=== PATIENT | male | born 1980 | race Caucasian/White ===

== ENCOUNTER 2017-09-08 15:25 | Inpatient (IN) | payer OTHER ==
[2017-09-08] MEDS ORDERED: XYLOCAINE 2% INFILTRATI ONE (21:44)
[2017-09-08] MEDS ORDERED: BACTRIM DS PO ONE (21:51)
[2017-09-08] MEDS ORDERED: PERCOCET 5/325 PO ONE (21:51)
[2017-09-08] MEDS ORDERED: BOOSTRIX IM ONE (21:51)
[2017-09-08] MEDS ORDERED: XYLOCAINE 1%/ EPI 1:100,000 INFILTRATI NR (22:00)
[2017-09-08] MEDS ORDERED: VANCOMYCIN/NS 1 GM/250 ML 1 GM/250 ML BAG IV ONE (22:54)
--- NOTE | 2017-09-08 22:57 | Emergency Department Report ---
- General Chief complaint: Skin/Abscess/Foreign Body Stated complaint: BUTTOCKS ABSCESS Time Seen by Provider: 09/08/17 21:40 Source: patient Mode of arrival: Ambulatory Limitations: No Limitations - History of Present Illness Initial comments: 37 yo male who comes in today due to a perirectal abscess since Friday. He states that he was seen at a clinic and was instructed to come here. He was given an oral medication in addition to a topical medication. He denies any personal medical history, or allergies to medications. He doesn't speak Slovenian. An staff mine warfare officer was used. MD complaint: other (perirectal abscess/cellulitis-right buttock ) Onset/Timin -: days(s) Location: buttocks (right ) Severity: moderate Severity scale (0 -10): 7 Quality: aching, sharp Consistency: constant Improves with: none Worsens with: palpation, movement Associated symptoms: denies other symptoms Treatments Prior to Arrival: other (prescription medication/ointment ) - Related Data Allergies Allergy/AdvReac Type Severity Reaction Status Date / Time No Known Allergies Allergy Unverified 09/08/17 17:26 Abscess Boil [facility] - HPI Chief Complaint: Skin/Abscess/Foreign Body Stated Complaint: BUTTOCKS ABSCESS Time Seen by Provider: 09/08/17 21:40 Duration: 5 Days Location: Perianal Severity: Moderate History: Yes Pain, No Fever, No Purulent Drainage, No Numbness, No Foreign Body , No Previous History, No Insect Bite Allergies/Adverse Reactions: Allergies Allergy/AdvReac Type Severity Reaction Status Date / Time No Known Allergies Allergy Unverified 09/08/17 17:26 ED Review of Systems ROS: Stated complaint: BUTTOCKS ABSCESS Other details as noted in HPI Constitutional: denies: chills, fever Eyes: denies: eye pain, eye discharge, vision change ENT: denies: ear pain, throat pain Respiratory: denies: cough, shortness of breath, wheezing Cardiovascular: denies: chest pain, palpitations Endocrine: no symptoms reported Gastrointestinal: as per HPI Genitourinary: denies: urgency, dysuria Musculoskeletal: denies: back pain, joint swelling, arthralgia Skin: as per HPI Neurological: denies: headache, weakness, paresthesias Psychiatric: denies: anxiety, depression Hematological/Lymphatic: denies: easy bleeding, easy bruising ED Past Medical Hx - Past Medical History Previous Medical History?: No - Surgical History Past Surgical History?: No - Social History Smoking Status: Never Smoker Substance Use Type: None ED Physical Exam - General Limitations: No Limitations General appearance: alert, in no apparent distress - Head Head exam: Present: atraumatic, normocephalic - Eye Eye exam: Present: normal appearance - ENT ENT exam: Present: mucous membranes moist - Respiratory Respiratory exam: Present: normal lung sounds bilaterally. Absent: respiratory distress - Cardiovascular Cardiovascular Exam: Present: regular rate, normal rhythm. Absent: systolic murmur, diastolic murmur, rubs, gallop - Rectal Rectal exam: Present: other (right-perirectal abscess/cellulitis ) - Back Exam Back exam: Present: normal inspection - Neurological Exam Neurological exam: Present: oriented X3 - Psychiatric Psychiatric exam: Present: normal affect, normal mood - Skin Skin exam: Present: warm, dry, intact, normal color. Absent: rash ED Course Vital Signs 09/08/17 09/08/17 17:24 22:13 Temperature 97.1 F L 99.9 F H Pulse Rate 92 H 78 Respiratory 18 14 Rate Blood Pressure 122/66 Blood Pressure 107/60 [Left] O2 Sat by Pulse 100 97 Oximetry - Reevaluation(s) Reevaluation #1: 09/09/17 00:59 CT pelvis revealed a right-sided perianal phlegmon extending along the medial aspect of the right buttock. Hospitalist consulted for admittance. Hospitalist to consult General Surgery on admission. - Consultations Consultation #1: 09/09/17 01:01 Dr. Raines-Hospitalist ED Medical Decision Making - Lab Data Result diagrams: 09/08/17 23:25 09/08/17 23:25 - Radiology Data Perianal abscess/cellulitis Critical care attestation.: If time is entered above; I have spent that time in minutes in the direct care of this critically ill patient, excluding procedure time. ED Disposition Clinical Impression: Perianal abscess, Perianal cellulitis Disposition: OP ADMIT IP TO THIS HOSP Is pt being admited?: Yes Does the pt Need Aspirin: No Condition: Stable Instructions: Cellulitis (ED), Anorectal Abscess and Anal Fistula (ED) Referrals: PRIMARY CARE, [Primary Care Provider] - 3-5 Days Time of Disposition: 01:04
[2017-09-08 23:55] LABS: Basophils % (Auto) 0.4 % (0.0-1.8); Eosinophils % (Auto) 0.2 % (0.0-4.3); Hematocrit 41.5 % (35.5-45.6); Hemoglobin 13.5 gm/dl (11.8-15.2); Mean Corpuscular HGB Conc 33 % (32-34); Mean Corpuscular Hemoglobin 31 pg (28-32); Mean Corpuscular Volume 95 fl (84-94); Platelet Count 268 K/mm3 (140-440); Red Blood Count 4.38 M/mm3 (3.65-5.03); Red Cell Distribution Width 12.1 % (13.2-15.2); White Blood Count 14.7 K/mm3 (4.5-11.0)
[2017-09-09 00:05] LABS: Alanine Aminotransferase 21 units/L (7-56); Albumin 3.9 g/dL (3.9-5); Albumin/Globulin Ratio 0.8 %; Alkaline Phosphatase 78 units/L (35-129); Anion Gap 19 mmol/L; BUN/Creatinine Ratio 16; Blood Urea Nitrogen 13 mg/dL (9-20); Carbon Dioxide 26 mmol/L (22-30); Chloride 96.4 mmol/L (98-107); Glucose 120 mg/dL (75-100); Potassium 3.9 mmol/L (3.6-5.0); Sodium 137 mmol/L (137-145); Total Protein 8.5 g/dL (6.3-8.2)
--- NOTE | 2017-09-09 00:47 | Cat Scan Report ---
FINAL REPORT EXAM: CT PELVIS WO CON HISTORY: perirectal abscess/cellulitis RT BUTTOCKS TECHNIQUE: Routine axial imaging was obtained of the pelvis without IV or oral contrast enhancement. Sagittal and coronal reconstructions were reviewed. FINDINGS: There is soft tissue fullness extending posteriorly from the perianal area right of midline involving the medial aspect of the right buttock measuring 2.7 cm x 7.2 cm x 5.5 cm. Findings are compatible with phlegmonous changes. A discrete abscess is not appreciated. The perirectal fat planes appear normal. The prostate gland and bladder appear normal. The bowel loops are normal in caliber. Free fluid is not seen in the pelvis. The skeletal structures are unremarkable. IMPRESSION: Right-sided perianal phlegmon extending along the medial aspect of the right buttock measuring 2.7 cm x 7.2 cm x 5.5 cm as described.
[2017-09-09 01:00] LABS: Erythrocyte Sedimentation Rate 69 mm/Hr (0-20)
[2017-09-09] MEDS ORDERED: NACL 0.9% 1000 ML 1,000 ML IV SCH (01:00)
[2017-09-09] MEDS ORDERED: ZOFRAN IV PRN (01:40)
[2017-09-09] MEDS ORDERED: TYLENOL PO PRN (01:41)
--- NOTE | 2017-09-09 02:44 | History and Physical Report ---
CHIEF COMPLAINT: Pain in the rectal area. HISTORY OF PRESENT ILLNESS: The patient is a 37-year-old male who came to the Emergency Room for complaint of pain in the rectal area. He said he was seen in the clinic and was instructed to come to the Emergency Room here. He was given some oral medication in addition to some topical medications. The patient has a hard time communicating because he does not speak fluent Luxembourger. He denied history of fever, denied history of nausea or vomiting, and denied history of any bloody stool. He was evaluated in the Emergency Room and found to have perirectal cellulitis and abscess. PAST MEDICAL HISTORY: Unremarkable. PAST SURGICAL HISTORY: Noncontributory. FAMILY HISTORY: Noncontributory. SOCIAL HISTORY: The patient does not smoke, does not drink alcohol, and does not use illicit drugs. MEDICATIONS: The patient is not on any medication other than the one that was given to him in the clinic. ALLERGIES: There are no known drug allergies. REVIEW OF SYSTEMS: CONSTITUTIONAL: There is no fever, no chills, no diaphoresis. HEENT: There is no headache or sore throat. CARDIOVASCULAR SYSTEM: There is no chest pain, orthopnea. RESPIRATORY SYSTEM: There is no shortness of breath or cough. GASTROINTESTINAL SYSTEM: There is no nausea, no vomiting, no abdominal pain, diarrhea or constipation. However, there is pain in the rectal area or anal area. NEUROLOGICAL SYSTEM: There is no numbness, no dizziness, no altered mental status. MUSCULOSKELETAL SYSTEM: There is no joint pain or swelling. DERMATOLOGICAL SYSTEM: There is no skin rash or itching. GENITOURINARY SYSTEM: There is no dysuria, hematuria, or flank pain. Rest of system review is normal. PHYSICAL EXAMINATION: GENERAL: At the time of exam, the patient was found to be alert, oriented x 3 and not in acute distress. VITAL SIGNS: Shows temperature of 99.9 degrees Fahrenheit, pulse of 78, respiration of 14, blood pressure 107/60, O2 sat of 97% on room air. HEENT: Showed pupils to be equal, round, reactive to light and accommodating. Extraocular muscles are intact. NECK: Supple with no JVD or carotid bruit. CARDIOVASCULAR SYSTEM: Show first and second heart sounds with no gallops or murmur. RESPIRATORY SYSTEM: Show good air entry on both sides of the lung with no abnormal breath sounds. GASTROINTESTINAL SYSTEM: Show abdomen to be full, soft, nontender with no organomegaly or rigidity. RECTAL: The patient's rectal exam was deferred having been done by the Emergency Room doctor. NEUROLOGICAL SYSTEM: There is no focal deficit. MUSCULOSKELETAL SYSTEM: Show no joint swelling or tenderness. DERMATOLOGICAL SYSTEM: Show no skin rash. GENITOURINARY: Showing no costovertebral angle tenderness. PERTINENT LABORATORY DATA AND IMAGING STUDIES: The patient has CBC done that shows elevated white count of 14,000, normal hemoglobin, normal hematocrit and elevated MCV of 95. CBC differential showed high segmented neutrophils of 78.4%. Chemistry shows normal sodium, potassium, low chloride, and normal liver transaminases. IMAGING STUDIES: The patient has CT of the pelvis done that shows right-sided perianal phlegmon extending along the medial aspect of the right buttock measuring 2.7 cm x 7.5 cm x 5.5 cm as described. DIAGNOSES: 1. Perianal abscess. 2. Perianal cellulitis. PLAN: The patient will be admitted to medical surgical floor and will be on IV Zosyn 3.375 grams q. 8 hours. The patient will also be on IV vancomycin 1 gram daily and will have surgical consult with Dr. Benton for management of perirectal abscess. The patient will be on Tylenol 650 mg by mouth every 4 hours for fever and headache and will be on Lovenox 40 mg subcutaneous daily for DVT prophylaxis. The patient will be on Dilaudid 1 mg IV every 4 hours as needed for pain and IV Zofran 4 mg every 6 hours for nausea and vomiting. Further management of the patient's condition will be determined by the surgical consult. JOB# [id number] OCN/NTS VARUN
[2017-09-09] MEDS ORDERED: VANCOMYCIN 1,500 MG in NACL 0.9% 500 ML 500 ML IV SCH (06:00)
[2017-09-09] MEDS ORDERED: ZOSYN/NS 3.375GM/50ML 3.375 GM/50 ML BAG IV SCH ×3 (06:00→08:00)
[2017-09-09] MEDS: DILAUDID IV PRN (08:55)
[2017-09-09] MEDS ORDERED: VANCOMYCIN/NS 1 GM/250 ML 1 GM/250 ML BAG IV SCH (10:00)
[2017-09-09] MEDS: LOVENOX SUB-Q SCH (10:11)
[2017-09-09] MEDS ORDERED: Fluarix Quad 2017-2018(36 MOS+ IM ONE (12:00)
[2017-09-09] MEDS ORDERED: DILAUDID IV ONE (14:47)
[2017-09-09] MEDS ORDERED: NACL 0.9% 500 ML IR ONE (14:57)
[2017-09-09] MEDS: ZOSYN/NS 4.5GM/100ML 4.5 GM/100 ML VIAL IV SCH ×2 (15:41→21:27)
--- NOTE | 2017-09-09 15:54 | Consultation ---
History of Present Illness Consult date: 09/09/17 Reason for consult: other (abscess) Chief complaint: rectal pain - History of present illness History of present illness: 37 yo ecuadorean speaking M with no PMHx presented to ER yesterday with rectal pain for the past several days. He states he has been having subjective fevers for 1 week. He denies CP, SOB, n/v, abd pain, c/d. He has never had pain like this before. Patient states the area starting draining just a few minutes ago. Translation line used to obtain history and physical exam. Past History Past Medical History: No medical history Past Surgical History: No surgical history Social history: no significant social history Family history: no significant family history Medications and Allergies Allergies Allergy/AdvReac Type Severity Reaction Status Date / Time No Known Allergies Allergy Unverified 09/08/17 17:26 Home Medications Medication Instructions Recorded Confirmed Last Taken Type No Known Home Medications [No 09/09/17 09/09/17 Unknown History Reported Home Medications] Active Meds: Active Medications Acetaminophen (Tylenol) 650 mg PO Q4H PRN PRN Reason: For Pain/Fever/Headache Enoxaparin Sodium (Lovenox) 40 mg SUB-Q QDAY EYAL Last Admin: 09/09/17 10:11 Dose: 40 mg Hydromorphone HCl (Dilaudid) 1 mg IV Q4H PRN PRN Reason: Pain , Severe (7-10) Last Admin: 09/09/17 08:55 Dose: 1 mg Sodium Chloride (Nacl 0.9% 1000 Ml) 1,000 mls @ 125 mls/hr IV DIRECT EYAL Piperacillin Sod/Tazobactam Sod (Zosyn/Ns 4.5gm/100ml) 4.5 gm in 100 mls @ 200 mls/hr IV Q8HR EYAL Last Admin: 09/09/17 15:41 Dose: 200 mls/hr Vancomycin HCl 1,750 mg/ (Sodium Chloride) 517.5 mls @ 333.333 mls/hr IV Q12H EYAL Lidocaine/Epinephrine (Xylocaine 1%/ Epi 1:100,000) 20 ml INFILTRATI ONCE NR Stop: 09/09/17 21:59 Ondansetron HCl (Zofran) 4 mg IV Q6H PRN PRN Reason: Nausea And Vomiting Review of Systems All systems: negative (see HPI) Exam Vital Signs Temp Pulse Resp BP Pulse Ox 97.1 F L 92 H 18 122/66 100 09/08/17 17:24 09/08/17 17:24 09/08/17 17:24 09/08/17 17:24 09/08/17 17:24 Narrative exam: Gen: AAOx3. NAD CV: S1, S2+ Resp: No audible wheezes Abd: soft, NT, ND Ext: No c/c/e /Rectal: Rectal exam unremarkable, no gross blood, masses or fluctuance. There is a large area of induration and fluctuance involving the right perirectal area with a 2cm opening, spontaneous drainage of large amount of pus (approx 100cc). Abscess cavity probed with cotton tip applicator. The abscess cavity measures approximately 6cm x 6cm x 2cm. All loculations blunty broken up with cotton tip applicator and all pus drained. Cultures obtained. Cavity copiously irrigated with saline and packed with 1 piece of 1/2 inch iodoform packing. Covered with gauze and abd, tape. No communication between abscess and rectum from exam. Results - Labs 09/08/17 23:25 09/08/17 23:25 - Imaging CT scan - pelvis: report reviewed, image reviewed Assessment and Plan 37 y/o M with perirectal abscess with spontaneous drainage 1. wound care provided at bedside and the abscess cavity was drained through spontaneous opening in skin. Continue daily packing changes 2. continue abx 3. wound cx pending 4. prn pain control 5. ok to start regular diet
[2017-09-09] MEDS ORDERED: NACL 0.9% IR PRN (16:32)
[2017-09-09] MEDS ORDERED: NACL 0.9% IR ONE (16:43)
[2017-09-09] MEDS: VANCOMYCIN 1,750 MG in NACL 0.9% 500 ML 500 ML IV SCH (19:36)
[2017-09-10] MEDS: ZOSYN/NS 4.5GM/100ML 4.5 GM/100 ML VIAL IV SCH ×3 (05:37→22:46)
[2017-09-10] MEDS: VANCOMYCIN 1,750 MG in NACL 0.9% 500 ML 500 ML IV SCH ×2 (06:27→18:48)
[2017-09-10] MEDS: DILAUDID IV PRN (08:26)
[2017-09-10 08:33] LABS: Basophils % (Auto) 0.4 % (0.0-1.8); Eosinophils % (Auto) 1.4 % (0.0-4.3); Hematocrit 38.9 % (35.5-45.6); Mean Corpuscular HGB Conc 33 % (32-34); Mean Corpuscular Hemoglobin 32 pg (28-32); Mean Corpuscular Volume 95 fl (84-94); Platelet Count 248 K/mm3 (140-440); Red Blood Count 4.09 M/mm3 (3.65-5.03); Red Cell Distribution Width 12.1 % (13.2-15.2); White Blood Count 6.8 K/mm3 (4.5-11.0)
--- NOTE | 2017-09-10 09:01 | Progress Note ---
Assessment and Plan 37 y/o M with perirectal abscess s/p drainage 1. packing changed today, continue daily packing changes 2. continue abx 3. wound cx pending 4. prn pain control - change to PO 5. reg diet 6. case management consult for home care Subjective Date of service: 09/10/17 Narrative: Patient seen and examined. No acute complaints. No overnight events. MAXIMUM TEMPERATURE 99.8 Objective Vital Signs - 12hr 09/09/17 09/10/17 23:40 07:35 Temperature 99.0 F 98.7 F Pulse Rate 58 L 61 Respiratory 18 18 Rate Blood Pressure 90/36 119/67 O2 Sat by Pulse 95 96 Oximetry - General physical appearance Narrative Exam: General: Awake, alert, oriented 3. No distress /GI: Patient's perirectal dressing was removed. There was some yellow drainage on the dressing. One piece of iodoform packing was removed from the wound. The wound was probed with a cotton tip applicator and 5 mL of additional purulent fluid was expressed. Induration is improved. The wound was irrigated with saline and repacked with 1 piece of half inch iodoform packing. Covered with 4 x 4 gauze. - Labs 09/10/17 08:08 09/08/17 23:25
[2017-09-10] MEDS: LOVENOX SUB-Q SCH (10:52)
[2017-09-10] MEDS ORDERED: PERCOCET 5/325 PO PRN (14:08)
--- NOTE | 2017-09-10 15:46 | Progress Note ---
Assessment and Plan Assessment and plan: 1. Perirectal abscess Surgery consulted Status post drainage through a spontaneous opening; packing in place Wound culture growing GPC and GNR Continue antibiotics, vancomycin and levofloxacin Pain control medications Local wound care 2. Obesity Counseled regarding importance of losing weight 3. DVT prophylaxis Lovenox History Interval history: s/p abscess drainage; c/o mild pain Hospitalist Physical - Constitutional Vitals: Temp Pulse Resp BP Pulse Ox 99.0 F 64 20 110/63 95 09/10/17 12:11 09/10/17 12:11 09/10/17 12:11 09/10/17 12:11 09/10/17 12:11 General appearance: Present: no acute distress, obese - EENT Eyes: Present: PERRL, EOM intact. Absent: scleral icterus, conjunctival injection - Neck Neck: Present: supple, normal ROM. Absent: masses or JVD - Respiratory Respiratory effort: normal Respiratory: bilateral: CTA, negative: rhonchi, wheezing - Cardiovascular Rhythm: regular Heart Sounds: Present: S1 & S2. Absent: systolic murmur - Extremities Extremities: no ischemia - Abdominal General gastrointestinal: soft, non-tender, non-distended, normal bowel sounds - Psychiatric Psychiatric: cooperative - Neurologic Neurologic: CNII-XII intact, no focal deficits - Additional findings Additional findings: - perirectal wound with packing in place Results - Labs CBC & Chem 7: 09/10/17 08:08 09/08/17 23:25 Labs: Laboratory Last Values WBC 6.8 K/mm3 (4.5-11.0) 09/10/17 08:08 RBC 4.09 M/mm3 (3.65-5.03) 09/10/17 08:08 Hgb 13.0 gm/dl (11.8-15.2) 09/10/17 08:08 Hct 38.9 % (35.5-45.6) 09/10/17 08:08 MCV 95 fl (84-94) H 09/10/17 08:08 MCH 32 pg (28-32) 09/10/17 08:08 MCHC 33 % (32-34) 09/10/17 08:08 RDW 12.1 % (13.2-15.2) L 09/10/17 08:08 Plt Count 248 K/mm3 (140-440) 09/10/17 08:08 Lymph % (Auto) 13.7 % (13.4-35.0) 09/10/17 08:08 [place] % (Auto) 11.5 % (0.0-7.3) H 09/10/17 08:08 Eos % (Auto) 1.4 % (0.0-4.3) 09/10/17 08:08 Baso % (Auto) 0.4 % (0.0-1.8) 09/10/17 08:08 Lymph # 0.9 K/mm3 (1.2-5.4) L 09/10/17 08:08 [place] # 0.8 K/mm3 (0.0-0.8) 09/10/17 08:08 Eos # 0.1 K/mm3 (0.0-0.4) 09/10/17 08:08 Baso # 0.0 K/mm3 (0.0-0.1) 09/10/17 08:08 Seg Neutrophils % 73.0 % (40.0-70.0) H 09/10/17 08:08 Seg Neutrophils # 5.0 K/mm3 (1.8-7.7) 09/10/17 08:08 ESR 69 mm/Hr (0-20) 09/08/17 23:25 Sodium 137 mmol/L (137-145) 09/08/17 23:25 Potassium 3.9 mmol/L (3.6-5.0) 09/08/17 23:25 Chloride 96.4 mmol/L (98-107) L 09/08/17 23:25 Carbon Dioxide 26 mmol/L (22-30) 09/08/17 23:25 Anion Gap 19 mmol/L 09/08/17 23:25 BUN 13 mg/dL (9-20) 09/08/17 23:25 Creatinine 0.8 mg/dL (0.8-1.5) 09/08/17 23:25 Estimated GFR > 60 ml/min 09/08/17 23:25 BUN/Creatinine Ratio 16 % 09/08/17 23:25 Glucose 120 mg/dL (75-100) H 09/08/17 23:25 Calcium 9.0 mg/dL (8.4-10.2) 09/08/17 23:25 Total Bilirubin 0.50 mg/dL (0.1-1.2) 09/08/17 23:25 AST 15 units/L (5-40) 09/08/17 23:25 ALT 21 units/L (7-56) 09/08/17 23:25 Alkaline Phosphatase 78 units/L (35-129) 09/08/17 23:25 C-Reactive Protein 7.30 mg/dL (0.00-1.30) H 09/08/17 23:25 Total Protein 8.5 g/dL (6.3-8.2) H 09/08/17 23:25 Albumin 3.9 g/dL (3.9-5) 09/08/17 23:25 Albumin/Globulin Ratio 0.8 % 09/08/17 23:25 - Imaging and Cardiology CT scan - pelvis: report reviewed
[2017-09-11] MEDS: ZOSYN/NS 4.5GM/100ML 4.5 GM/100 ML VIAL IV SCH ×3 (05:47→21:30)
[2017-09-11] MEDS: VANCOMYCIN 1,750 MG in NACL 0.9% 500 ML 500 ML IV SCH ×2 (06:46→17:10)
[2017-09-11] MEDS: LOVENOX SUB-Q SCH (09:47)
--- NOTE | 2017-09-11 13:56 | Progress Note ---
Assessment and Plan 37 y/o M with perirectal abscess s/p drainage 1. packing changes daily per wound care nurse 2. continue abx - switch to PO per 1' 3. final wound cx pending 4. prn pain control - change to PO 5. reg diet 6. case management consult for home care 7. ok for dc from surgical standpoint once on PO antibiotics 8. f/u in wound care clinic or with me in office 1week after discharge Juli Benton DO [address] [facility], [address] [place] [address] Call [phone] for appointment. Subjective Date of service: 09/11/17 Narrative: Patient seen and examined. No complaints. Pain controlled. Tm 99.8 this am. Objective Vital Signs - 12hr 09/11/17 07:35 Temperature 99.7 F H Pulse Rate 49 L Respiratory 16 Rate Blood Pressure 115/60 O2 Sat by Pulse 94 Oximetry - General physical appearance Narrative Exam: Gen: AAOx3. NAD Perirectal wound: No induration or fluctuance. Wound packed with mesalt. Dressing intact. - Labs 09/10/17 08:08 09/08/17 23:25
--- NOTE | 2017-09-11 20:30 | Progress Note ---
Assessment and Plan Assessment and plan: 1. Perirectal abscess Surgery consulted and s/p drainage through a spontaneous opening; packing in place Wound culture growing GPC and GNR Continue antibiotics, vancomycin and zosyn Pain control medications Local wound care 2. Obesity Counseled regarding importance of losing weight 3. DVT prophylaxis Lovenox History Interval history: s/p abscess drainage; c/o mild pain discussed through translation line and information about wound care and surgery f/u given Hospitalist Physical - Constitutional Vitals: Temp Pulse Resp BP Pulse Ox 99.0 F 46 L 16 112/66 94 09/11/17 16:15 09/11/17 16:15 09/11/17 16:15 09/11/17 16:15 09/11/17 16:15 General appearance: Present: no acute distress, obese - EENT Eyes: Present: PERRL, EOM intact - Neck Neck: Present: supple, normal ROM. Absent: masses or JVD - Respiratory Respiratory effort: normal Respiratory: bilateral: CTA, negative: rhonchi, wheezing - Cardiovascular Rhythm: regular Heart Sounds: Present: S1 & S2. Absent: systolic murmur - Extremities Extremities: no ischemia - Abdominal General gastrointestinal: soft, non-tender, non-distended, normal bowel sounds - Psychiatric Psychiatric: cooperative - Neurologic Neurologic: CNII-XII intact, no focal deficits - Additional findings Additional findings: perirectal wound with packing in place Results - Labs CBC & Chem 7: 09/10/17 08:08 09/08/17 23:25 Labs: Laboratory Last Values WBC 6.8 K/mm3 (4.5-11.0) 09/10/17 08:08 RBC 4.09 M/mm3 (3.65-5.03) 09/10/17 08:08 Hgb 13.0 gm/dl (11.8-15.2) 09/10/17 08:08 Hct 38.9 % (35.5-45.6) 09/10/17 08:08 MCV 95 fl (84-94) H 09/10/17 08:08 MCH 32 pg (28-32) 09/10/17 08:08 MCHC 33 % (32-34) 09/10/17 08:08 RDW 12.1 % (13.2-15.2) L 09/10/17 08:08 Plt Count 248 K/mm3 (140-440) 09/10/17 08:08 Lymph % (Auto) 13.7 % (13.4-35.0) 09/10/17 08:08 [place] % (Auto) 11.5 % (0.0-7.3) H 09/10/17 08:08 Eos % (Auto) 1.4 % (0.0-4.3) 09/10/17 08:08 Baso % (Auto) 0.4 % (0.0-1.8) 09/10/17 08:08 Lymph # 0.9 K/mm3 (1.2-5.4) L 09/10/17 08:08 [place] # 0.8 K/mm3 (0.0-0.8) 09/10/17 08:08 Eos # 0.1 K/mm3 (0.0-0.4) 09/10/17 08:08 Baso # 0.0 K/mm3 (0.0-0.1) 09/10/17 08:08 Seg Neutrophils % 73.0 % (40.0-70.0) H 09/10/17 08:08 Seg Neutrophils # 5.0 K/mm3 (1.8-7.7) 09/10/17 08:08 ESR 69 mm/Hr (0-20) 09/08/17 23:25 Sodium 137 mmol/L (137-145) 09/08/17 23:25 Potassium 3.9 mmol/L (3.6-5.0) 09/08/17 23:25 Chloride 96.4 mmol/L (98-107) L 09/08/17 23:25 Carbon Dioxide 26 mmol/L (22-30) 09/08/17 23:25 Anion Gap 19 mmol/L 09/08/17 23:25 BUN 13 mg/dL (9-20) 09/08/17 23:25 Creatinine 0.8 mg/dL (0.8-1.5) 09/08/17 23:25 Estimated GFR > 60 ml/min 09/08/17 23:25 BUN/Creatinine Ratio 16 % 09/08/17 23:25 Glucose 120 mg/dL (75-100) H 09/08/17 23:25 Calcium 9.0 mg/dL (8.4-10.2) 09/08/17 23:25 Total Bilirubin 0.50 mg/dL (0.1-1.2) 09/08/17 23:25 AST 15 units/L (5-40) 09/08/17 23:25 ALT 21 units/L (7-56) 09/08/17 23:25 Alkaline Phosphatase 78 units/L (35-129) 09/08/17 23:25 C-Reactive Protein 7.30 mg/dL (0.00-1.30) H 09/08/17 23:25 Total Protein 8.5 g/dL (6.3-8.2) H 09/08/17 23:25 Albumin 3.9 g/dL (3.9-5) 09/08/17 23:25 Albumin/Globulin Ratio 0.8 % 09/08/17 23:25 Vancomycin Trough 13.7 ug/mL (5.0-20.0) 09/11/17 05:17
[2017-09-12] MEDS: ZOSYN/NS 4.5GM/100ML 4.5 GM/100 ML VIAL IV SCH (05:25)
[2017-09-12] MEDS: VANCOMYCIN 1,750 MG in NACL 0.9% 500 ML 500 ML IV SCH (06:21)
[2017-09-12 07:46] VITALS: BP 98/41
[2017-09-12] MEDS: LOVENOX SUB-Q SCH (10:00)
--- NOTE | 2017-09-12 10:39 | Discharge Summary ---
Providers - Providers Date of Admission: 09/09/17 01:58 Date of discharge: 09/12/17 Attending physician: CHRISTIAN CONROY 09/10/17 08:54 Consult to Wound/ET Nurse [CONS] Routine Reason For Exam: wound eval 09/10/17 14:08 Consult to Case Management [CONS] Routine Services Needed at Discharge: Home Health Services Notified:: COPY LEFT FOR CM Primary care physician: PAPERHANGER Hospitalization Reason for admission: rectal pain Condition: Stable Pertinent studies: CT pelvis Hospital course: Patient is a 37 years old obese male, only Pashto speaker, with no significant past medical history, who presented to ER complaining of pain in rectal area. Found to have a perirectal abscess. Surgery was consulted and abscess was drained to a spontaneous opening. Local wound care, pain control medications and IV antibiotics given. Transioned to oralantibiotics and discharged with home wound care and surgery follow-up in a week. Discharge diagnoses: 1. Perirectal abscess 2. Obesity - counseled regarding importance of losing weight Disposition: [id number]/[place]-06 HOME UNDER HOME [facility] Time spent for discharge: 35 min Core Measure Documentation - Palliative Care Palliative Care/ Comfort Measures: Not Applicable - Core Measures Any of the following diagnoses?: none Exam - Physical Exam Narrative exam: Seen and examined: - Constitutional Vitals: Temp Pulse Resp BP Pulse Ox 98.3 F 47 L 18 98/41 94 09/12/17 07:43 09/12/17 07:43 09/12/17 07:43 09/12/17 07:43 09/12/17 07:43 General appearance: Present: no acute distress, obese - EENT Eyes: Present: PERRL, EOM intact - Neck Neck: Present: supple. Absent: enlarged thyroid, masses or JVD - Respiratory Respiratory effort: normal Respiratory: bilateral: CTA, negative: rhonchi, wheezing - Cardiovascular Rhythm: regular Heart Sounds: Present: S1 & S2. Absent: systolic murmur - Extremities Extremities: no ischemia - Abdominal General gastrointestinal: Present: soft, non-tender, non-distended, normal bowel sounds - Psychiatric Psychiatric: cooperative - Neurologic Neurologic: CNII-XII intact, no focal deficits - Additional findings Additional findings: perirectal wound with packing and dressing in place Plan Activity: advance as tolerated Diet: low cholesterol, low salt Wound: per your surgeon's advice Follow up with: PRIMARY CARE, [Primary Care Provider] - 3-5 Days EDIL ARTEAGA DO [Staff Physician] - 09/19/17 10:30 am Prescriptions: Ibuprofen 600 mg PO Q8H #20 tablet oxyCODONE /ACETAMINOPHEN [Percocet 5/325 mg] 2 tab PO Q6H PRN #14 tablet PRN Reason: Pain, Moderate (4-6) Sulfamethoxazole/Trimethoprim [Bactrim DS TAB] 1 each PO BID #14 tablet
--- NOTE | 2017-09-12 12:19 | Event Note ---
Date: 09/12/17 Pt seen today and I personally discussed wound care with him using the language line. Pt is to remove packing every other day and instructed to take a sitz bath. [place] packing to be replaced q48 hours per wound care. Patient states his mother will be able to help him with packing. All questions answered. Patient understands instructions. He will follow up with me in 1 week, appointment is scheduled. PO abx per 1' team.
== END 2017-09-12 15:53 | disposition home health service (06) | DRG 345 ==
LOC: ED 15:25 → 3A 09-09 01:58
PROVIDERS: ADMIT Internal Medicine; ATTEND Internal Medicine
PROC: 3E0234Z Introduction of Serum, Toxoid and Vaccine into Muscle, Percutaneous Approach (ICD-10-PCS; 2017-09-09)
PROC: 0D9P0ZZ Drainage of Rectum, Open Approach (ICD-10-PCS; principal; 2017-09-10)
DX: K61.1 Rectal abscess (principal); L03.818 Cellulitis of other sites; K61.0 Anal abscess; E66.9 Obesity, unspecified; Z68.36 Body mass index [BMI] 36.0-36.9, adult; Z23 Encounter for immunization
CPT/HCPCS: 36415; 72192; 80053; 80202; 85025; 85652; 86140; 87040; 87075; 87076; 87116; 87186; 90471; 90686; 90715; 96365; 96368; J1170; J1650; J2543; J3370; J7040